=== PATIENT | male | born 1970 | race Caucasian/White ===

== ENCOUNTER 2018-08-09 17:12 | Emergency (ER) | payer OTHER ==
[~2018-08-09] VITALS: Ht 165.1 cm; Wt 88.0 kg
[2018-08-09 17:18] VITALS: BP_SYST 115
[2018-08-09] MEDS ORDERED: LIDOCAINE 2%, 20 ML MDV INJ ONE (18:15)
[2018-08-09] MEDS ORDERED: DIPH-TET-PERTUS Vaccine 0.5 ML VIAL (ADACEL) I.M. ONE (18:15)
[2018-08-09 20:01] VITALS: BP_SYST 115
[2018-08-09] MEDS ORDERED: BACITRACIN 1 GM OINT TP ONE (20:05)
== END 2018-08-09 20:01 | disposition home or self-care (01) ==
LOC: SED 17:12
DX: S61.210A Laceration without foreign body of right index finger without damage to nail, initial encounter (principal); E11.9 Type 2 diabetes mellitus without complications; W26.8XXA Contact with other sharp object(s), not elsewhere classified, initial encounter; Y93.89 Activity, other specified; Y92.89 Other specified places as the place of occurrence of the external cause; Y99.8 Other external cause status
CPT/HCPCS: 12002; 90471; 90715; 99283; J2001